=== PATIENT | male | born 1990 | race Caucasian/White ===

== ENCOUNTER 2023-10-28 03:48 | Emergency (ER) | payer OTHER, SELFPAY ==
--- NOTE | ~2023-10-28 | XR_ITS ---
EXAMINATION: XR ANKLE, RIGHT CLINICAL INFORMATION: Right ankle deformity. Pain. COMPARISON: None available. TECHNIQUE: AP, lateral, and mortise views of the right ankle. FINDINGS: Spiral oblique fractures are noted through the distal fibular metadiaphysis with intra-articular extension. No significant displacement is appreciated. No additional acute fractures are seen. Ankle mortise appears intact. Moderate to severe soft tissue swelling is noted over the lateral malleolus and lower leg. No evidence of radiopaque foreign body or soft tissue air. XR/XR ankle RT min 3V IMPRESSION: Oblique spiral fractures through the distal fibular metadiaphysis with suggestion of intra-articular extension. No significant displacement is noted. Overlying soft tissue swelling. No additional acute fractures are noted in the right ankle.
--- NOTE | ~2023-10-28 | XR_ITS ---
EXAMINATION: XR FOOT, RIGHT CLINICAL INFORMATION: Mid foot pain COMPARISON: None available. TECHNIQUE: AP, lateral, and oblique views of the right foot. FINDINGS: There is a minimally displaced oblique fracture of the distal fibula. Osseous alignment throughout the foot is anatomic. No additional fracture identified in the foot. No significant focal soft tissue abnormality identified. XR/XR foot RT min 3V IMPRESSION: Minimally displaced oblique fracture of the distal fibula.
[2023-10-28 04:02] VITALS: BP 138/82; PULSE 121; O2SAT 98; BMI 18.8
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
[2023-10-28] MEDS: Acetaminophen 325 MG TABLET 975 MG PO (05:44)
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
== END 2023-10-28 07:00 ==
PROVIDERS: Emergency Provider Student in an Organized Health Care Education/Training Program
DX: S82.452A Displaced comminuted fracture of shaft of left fibula, initial encounter for closed fracture (principal); S80.212A Abrasion, left knee, initial encounter; S90.511A Abrasion, right ankle, initial encounter; S00.83XA Contusion of other part of head, initial encounter; M79.671 Pain in right foot; Y04.2XXA Assault by strike against or bumped into by another person, initial encounter; Y93.9 Activity, unspecified; Y92.9 Unspecified place or not applicable; Y99.9 Unspecified external cause status
CPT/HCPCS: 73610; 73630; 99283

== ENCOUNTER 2023-11-04 10:18 | Outpatient (AMB) | payer OTHER, SELFPAY ==
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
[2023-11-04 10:22] VITALS: BMI 18.7
== END 2023-11-04 10:49 | disposition home or self-care (01) ==
PROVIDERS: Visit Provider Physician Assistant
DX: S82.831A Other fracture of upper and lower end of right fibula, initial encounter for closed fracture (principal)
CPT/HCPCS: 99203

== ENCOUNTER → 2023-11-04 10:18 | Outpatient (BNVA) | payer OTHER, SELFPAY | PROVIDERS: Visit Provider Physician Assistant | DX: S82.831A Other fracture of upper and lower end of right fibula, initial encounter for closed fracture (principal) | CPT/HCPCS: 99202 ==

== ENCOUNTER 2023-11-14 10:53 | Outpatient (REF) | payer OTHER, SELFPAY ==
--- NOTE | ~2023-11-14 | XR_ITS ---
EXAMINATION: XR ANKLE, RIGHT CLINICAL INFORMATION: Reason for Exam M25.571 - Pain in right ankle and joints of right foot COMPARISON: X-rays of the right ankle October 2013. TECHNIQUE: AP, lateral, and mortise views of the right ankle. FINDINGS: There is decreased soft tissue swelling over the distal fibula. The oblique minimally displaced fracture distal fibula is redemonstrated unchanged in appearance and alignment. The mortise remains intact. Remaining bone and joints unremarkable. XR/XR ankle RT min 3V IMPRESSION: 1. Decreased soft tissue swelling over the distal fibula. 2. No change in alignment of the distal fibular fracture.
== END 2023-11-14 10:54 | disposition home or self-care (01) ==
LOC: HO.HOSX 10:53
PROVIDERS: Visit Provider Physician Assistant
DX: S82.831D Other fracture of upper and lower end of right fibula, subsequent encounter for closed fracture with routine healing (principal); M25.571 Pain in right ankle and joints of right foot; X58.XXXD Exposure to other specified factors, subsequent encounter
CPT/HCPCS: 73610; 99212

== ENCOUNTER 2023-11-14 13:44 | Outpatient (AMB) | payer OTHER, SELFPAY ==
--- NOTE | 2023-11-14 14:12 | A.OFFVIS_ITS ---
Intake Intake Visit Reasons: OV- Rt ankle fx Intake Note: Marlo a 33 year old male presents today for a follow up of right ankle fx, DOI 10/28/23. Patient reports discomfort with sleeping. Currently his pain level is 8-9 out of 10. States sharp pain at the lateral aspect of ankle. Finds some relief with elevation. He continues to wear a walking boot as instructed. Allergies aspirin Allergy (Unverified 11/14/23 14:18) Unknown NSAIDS (Non-Steroidal Anti-Inflamma Allergy (Unverified 11/14/23 14:18) Unknown Penicillins Allergy (Unverified 11/14/23 14:18) Unknown HPI OV- Rt ankle fx HPI Details 33-year-old male who returns to the [facility] today for a follow-up of right ankle fracture, 10/28/23. He continues to have sharp pain at the lateral aspect of his ankle and rates the pain as about 8 on the scale of 0-10. He also c/o discomfort with sleeping. He finds mild relief with elevation. He continues to wear the walking boot as instructed. [facility] Social History Patient Tobacco Use Status: Current someday Tobacco user Current occupational status: employed Current occupation: [employer] store Review of Systems Const All systems reviewed & are unremarkable except as noted in HPI and below Physical Exam Const General: cooperative and no acute distress Orientation/consciousness: patient oriented x3 Resp Effort & Inspection: normal respiratory effort and able to speak in complete sentences Cardio Peripheral pulses: Peripheral pulses 2+ throughout Neuro General: patient oriented x3 Extrem Other: Right ankle: Normal to inspection with diffuse swelling over the medial and lateral malleolus with tenderness along the soft tissues. No discomfort along the posterior aspect of the ankle, no deformity along the Achilles tendon, negative Brito?s. No pain along the syndesmosis or anterior tibia. No laxity, NVI. Results Reviewed Results Reviewed: xrays of the right ankle obtained in the office today show non displaced distal fibular fx with ankle mortise intact Assessment & Plan Assessment & Plan (1) Fracture of distal end of right fibula: Code(s): S82.831A - Other fracture of upper and lower end of right fibula, initial en counter for closed fracture Qualifiers: Encounter type: subsequent encounter Fracture morphology: other fracture Fracture type: closed Fracture healing: with routine healing Qualified Code(s): S82.831D - Other fracture of upper and lower end of right fibula, subsequent encounter for closed fracture with routine healing Plan Images were reviewed with Dr. Bennett in the office today. He will continue with conservative treatment. He will be weight bearing as tolerated. He will elevate for swelling control. He will remain out of work till I see him back in 6 weeks with new x-rays, sooner if needed. Orders: Orders XR ankle RT min 3V Today M25.571 - Pain in right ankle and joints of right foot Patient Instructions: Scribed for Anabella Key PA-C, by Javier Quintanilla medical insurance collector, on 11/14/2023 at 2:15 PM OSWALD. Anabella Langford PA-C, have personally reviewed and agree with the information entered by the scribe. Coding Level of Care Code Global (88739) Diagnoses Other closed fracture of distal end of right fibula with routine healing, subsequent encounter S82.831D Encounter type: subsequent encounter Fracture morphology: other fracture Fracture type: closed Fracture healing: with routine healing
== END 2023-11-14 14:39 | disposition home or self-care (01) ==
PROVIDERS: Visit Provider Physician Assistant
DX: S82.831D Other fracture of upper and lower end of right fibula, subsequent encounter for closed fracture with routine healing (principal)
CPT/HCPCS: 99213

== ENCOUNTER 2023-12-26 09:16 | Outpatient (REF) | payer OTHER, SELFPAY ==
--- NOTE | ~2023-12-26 | XR_ITS ---
EXAMINATION: XR ANKLE, RIGHT CLINICAL INFORMATION: Pain. COMPARISON: Radiograph right ankle 11/14/2023. TECHNIQUE: AP, lateral, and mortise views of the right ankle. FINDINGS: Fracture lines of distal fibular fracture are slightly less distinct suggesting some degree of osseous bridging and healing. Soft tissue swelling is decreased. No interval injuries. XR/XR ankle RT min 3V IMPRESSION: 1. Healing distal fibular fracture. 2. Decreased soft tissue swelling.
== END 2023-12-26 09:17 | disposition home or self-care (01) ==
LOC: HO.HOSX 09:16
PROVIDERS: Visit Provider Physician Assistant
DX: M25.571 Pain in right ankle and joints of right foot (principal); S82.831D Other fracture of upper and lower end of right fibula, subsequent encounter for closed fracture with routine healing; X58.XXXD Exposure to other specified factors, subsequent encounter
CPT/HCPCS: 73610; 99212

== ENCOUNTER 2023-12-26 14:00 | Outpatient (AMB) | payer OTHER, SELFPAY ==
[2023-12-26 14:22] VITALS: BMI 18.7
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
== END 2023-12-26 14:50 | disposition home or self-care (01) ==
PROVIDERS: Visit Provider Physician Assistant
DX: S82.831D Other fracture of upper and lower end of right fibula, subsequent encounter for closed fracture with routine healing (principal)
CPT/HCPCS: 99213

== ENCOUNTER 2024-01-03 16:53 | Emergency (ER) | payer OTHER, SELFPAY ==
--- NOTE | ~2024-01-03 | CT_ITS ---
EXAMINATION: CT HEAD WITHOUT CONTRAST CLINICAL INFORMATION: Headaches. COMPARISON: None. TECHNIQUE: Contiguous axial imaging was performed from the skull base to vertex without intravenous administration of contrast. Coronal and sagittal reformatted images are performed at the CT scanner. [This CT examination was performed using dose optimization techniques as appropriate, variously including the following: *Automated exposure control *Adjustment of mA and/or kV according to patient size (this includes techniques or standardized protocols for targeted exams where dose is matched to indication/reason for exam; i.e. extremities or head) *Use of iterative reconstruction technique] DLP: 607 mGy-cm. FINDINGS: There is no evidence of acute intracranial hemorrhage or territorial infarction. No abnormal mass-effect or midline shift is seen. [place] to white matter differentiation is well preserved. No extra-axial fluid collections are identified. The ventricles are normal in size. There is no abnormal attenuation within the brain parenchyma. There is no osseous abnormality. The mastoid air cells and visualized portions of the paranasal sinuses are well-aerated. CT/CT head/brain wo IV con IMPRESSION: No acute intracranial pathology.
[2024-01-03 17:17] VITALS: BP 150/90; PULSE 82; RESP 16; TEMP 36.6; O2SAT 98; BMI 20.5
--- NOTE | 2024-01-03 17:18 | ED.HA ---
HPI - Headache General Chief Complaint: Headache Stated Complaint: lft head side pain/vomiting Time Seen by Provider: 01/03/24 21:14 History of Present Illness HPI Narrative: The patient is a 33-year-old male who was generally in good health. He has on no medications. He says he has a history of allergies but otherwise considers himself in good health. He says that 2 days ago on Tuesday he developed a lot of vomiting. This was associated with some diarrhea. Yesterday the vomiting had resolved but he developed a headache at around 11:00. He says he was doing nothing in particular at the time and there was no action or event that provoked with a headache. He says that he rested and just waited to see if it would get better. Today he continued to have the headache and was encouraged by his employer to get checked. He has not had a fever. He says the headache at this point his primarily on the left side of his head above his left ear. It is worse if he sneezes. He has had some sneezing and nasal discharge. No fevers. No sore throat. He says he does not normally get headaches. There is some associated photophobia. No other visual symptoms. Related Data Home Medications Medication Instructions Recorded Confirmed No Known Home Meds 11/04/23 11/04/23 Allergies Allergy/AdvReac Type Severity Reaction Status Date / Time aspirin Allergy Unknown Unverified 12/26/23 14:26 NSAIDS (Non-Steroidal Allergy Unknown Unverified 12/26/23 14:26 Anti-Inflamma Penicillins Allergy Unknown Unverified 12/26/23 14:26 Review of Systems Review of Systems: Yes all other systems are reviewed and are negative [facility] Social History Social History Patient Tobacco Use Status: Current someday Tobacco user Advance Directives: No Advance Directives Information Provided: No Current occupational status: employed Current occupation: [employer] Physical Exam Vital Signs: Vital Signs: Last Vital Signs Temp 97.9 F 01/03/24 17:17 Pulse 91 01/03/24 19:55 Resp 14 01/03/24 19:55 BP 150/90 H 01/03/24 17:17 Pulse Ox 97 01/03/24 19:55 O2 Del Method Room Air 01/03/24 19:55 BMI result Body Mass Index 20.5 Const: Other: The patient is awake and alert, pleasant and cooperative. He does not appear acutely ill in any way. He does not appear in distress. HEENT: Other: Face is symmetrical. The pharynx is normal. There is no facial swelling. No trismus. There is tenderness to the left scalp in the left temporal region and above and behind the left ear. There is no apparent soft tissue swelling. No erythema. Tympanic membranes are normal bilaterally. External ears are normal bilaterally. Eyes: Other: Pupils are round, equal and reactive to light. Extraocular movements are intact. Conjunctivae are clear. Eyelids are normal. Neck: Other: The neck is entirely supple. No cervical adenopathy. Resp: Effort & Inspection: normal respiratory effort Auscultation: clear to auscultation bilaterally Cardio: Rate: regular rate Rhythm: regular rhythm Heart sounds: S1 normal heart sound present and S2 normal heart sound present Skin: Other: Skin is dry and unremarkable. No rash. Neuro: Other: The patient is awake, alert, appropriate, nontoxic appearing. Cranial nerves are intact. He moves his extremities normally. He moves with normal coordination. He is grossly neurologically intact. Extrem: Other: Extremities are unremarkable. No peripheral edema. Course Course Course Narrative: This is rapid medical exam. Deferred additional HPI, ROS, PE to primary provider. 33 yo male with no known medical history here with complaints of headache, vomiting since Tuesday. no fever, no history of migraines. Will obtain viral testing VSS Medications Administered Discontinued Medications Generic Name Dose Route Start Last Admin Trade Name Freq PRN Reason Stop Dose Admin Acetaminophen 975 mg 01/03/24 21:56 01/03/24 21:59 Acetaminophen 325 Mg Tablet PO 01/03/24 21:57 975 mg ONCE ONE Administration Medical Decision Making Medical Decision Making MDM Narrative: The patient is a very pleasant an ordinarily healthy 33-year-old presents with a new headache syndrome. He describes having initially had vomiting. He describes also having some nasal discharge and a left-sided headache that is worse when he blows his nose. Viral swabs are negative. Head CT is negative. His vital signs are unremarkable. Overall I do not find any evidence of an acutely dangerous process. I think he may be discharged with instructions to use ibuprofen and acetaminophen as needed for his discomfort and should follow up with his regular doctor. Lab Data Labs: Lab Results 01/03/24 Range/Units 17:42 COVID-19 (LANEY) Negative (Negative) COVID-19 Clin Com See Note Influenza Type A (MICHELE) Negative (Negative) Influenza Type B (MICHELE) Negative (Negative) Influenza A & B Note See Note Discharge Plan Discharge Clinical Impression: Headache Patient Disposition: Home, Self-Care Additional Instructions: You tested negative for COVID and influenza today. The CT scan of your head is unremarkable. I think it is unlikely that your headache represents a significantly dangerous process. My hope is that it gets better on its own in the next couple of days. You may use ibuprofen and acetaminophen as needed. Please contact [address] [place] [address] tomorrow to set up a follow-up appointment with a regular doctor to discuss this further and for a regular checkup. If at any point you are significantly worse please return to the emergency room. Prescriptions: No Action No Known Home Meds Referrals: [facility] [Provider Group] (headache) Stand Alone Forms: Work/School Release Interventions: ED Discharge Assessment Last Done: 01/03/24 22:36 Discharge Date/Time: 01/03/24 22:36
[2024-01-03 18:21] LABS: COVID-19 Test Negative (Negative); IDNOW Serial# 08D9AD1C; IDNOW Serial# 152EDE1D; Influenza A Negative (Negative); Influenza B2 Negative (Negative)
[2024-01-03 19:55] VITALS: PULSE 91; RESP 14; O2SAT 97
[2024-01-03] MEDS: Acetaminophen 325 MG TABLET 975 MG PO (21:59)
== END 2024-01-03 22:36 | disposition home or self-care (01) ==
PROVIDERS: Nurse Practitioner Family; Emergency Provider Emergency Medicine
DX: R51.9 Headache, unspecified (principal); R11.10 Vomiting, unspecified; R19.7 Diarrhea, unspecified; R09.89 Other specified symptoms and signs involving the circulatory and respiratory systems; Z11.52 Encounter for screening for COVID-19
CPT/HCPCS: 70450; 87502; 87635; 99284

== ENCOUNTER 2024-02-06 09:53 | Outpatient (REF) | payer OTHER, SELFPAY | END 2024-02-06 09:54 | disposition home or self-care (01) | LOC: HO.HOSX 09:53 | PROVIDERS: Visit Provider Physician Assistant | DX: Z13.89 Encounter for screening for other disorder (principal) ==

== ENCOUNTER 2025-04-19 22:29 | Emergency (ER) | payer OTHER, SELFPAY ==
--- NOTE | ~2025-04-19 | CT_ITS ---
CLINICAL HISTORY: trauma CT CERVICAL SPINE WITHOUT CONTRAST COMPARISON: None. FINDINGS: There is no evidence of an acute fracture or dislocation. Vertebral body heights and alignment are maintained. There is no prevertebral soft tissue swelling. No pneumothorax in the lung apices. IMPRESSION: 1. No evidence of an acute fracture or dislocation. This document has been electronically signed by: Carlos De La Cruz M.D. on 04/20/2025 03:32:15
--- NOTE | ~2025-04-19 | CT_ITS ---
CLINICAL HISTORY: trauma CT CHEST WITH CONTRAST CT ABDOMEN AND PELVIS WITH CONTRAST COMPARISON: None. FINDINGS: CT CHEST: Exam is motion limited. No evidence of a pneumothorax or pneumomediastinum. No acute infiltrate or consolidation. No pleural effusion. No lymphadenopathy. Cardiac size is within normal limits. Thoracic aorta is partially obscured by motion/streak artifact but is normal in caliber without evidence of an aneurysm. No definite dissection. Sternum, manubrium, ribs, and thoracic spine are grossly intact. Gynecomastia is noted. CT ABDOMEN/PELVIS: Exam is limited due to motion/streak artifact. No evidence of an acute traumatic injury in the abdomen/pelvis. Fatty liver is noted. Gallbladder is grossly unremarkable. Stomach is underdistended which limits assessment. There is minimal prominence of the pancreatic duct without focal lesion. Spleen and adrenal glands are unremarkable. Both kidneys are unremarkable. Contrast is noted within portions of the renal collecting systems. No evidence of a urinary bladder rupture. No evidence of an abdominal aortic aneurysm or dissection. No evidence of a bowel obstruction or free air. No definite pericolonic inflammation. No evidence of appendicitis. No lymphadenopathy or loculated fluid collection. Lumbar spine, bony pelvis, and hips are intact. IMPRESSION: 1. CT chest and CT abdomen/pelvis are limited due to motion/streak artifact. No definite evidence of an acute traumatic injury. 2. Additional findings are detailed above. This document has been electronically signed by: Carlos De La Cruz M.D. on 04/20/2025 03:57:44
--- NOTE | ~2025-04-19 | CT_ITS ---
CLINICAL HISTORY: head injury CT BRAIN WITHOUT CONTRAST COMPARISON: 01/03/2024. FINDINGS: There is no evidence of an acute infarct or intraparenchymal hemorrhage. There is no mass effect, midline shift, or extra-axial blood. The ventricles are normal in size without evidence of hydrocephalus. The bone windows are unremarkable. There is again noted to be remote posttraumatic change involving the medial wall of the left orbit. Soft tissue swelling/hematoma is noted posterior to the calvarium, for example seen on axial image 36 of series 2. IMPRESSION: 1. No acute disease in the brain. Soft tissue swelling/hematoma is noted posterior to the calvarium. This document has been electronically signed by: Carlos De La Cruz M.D. on 04/20/2025 03:38:54
[2025-04-19 22:31] VITALS: PULSE 67; O2SAT 97; BMI 24.2
--- NOTE | 2025-04-19 22:37 | ECG_ITS ---
Test Reason : OD Blood Pressure : */* mmHG Vent. Rate : 69 BPM Atrial Rate : 69 BPM P-R Int : 164 ms QRS Dur : 84 ms QT Int : 402 ms P-R-T Axes : 79 81 48 degrees QTcB Int : 430 ms Normal sinus rhythm Early repolarization Normal ECG No previous ECGs available Referred By: Nicole Suarez Electronically Signed By: Jeremi Randall
[2025-04-19 22:54] LABS: MANUAL DIFF FLAG NO
[2025-04-19 22:55] LABS: Basophils Absolute Auto 0.1 X10*3/uL (0.0-0.2); Basophils Percent Auto 0.5 % (0-2); Eosinophils Absolute Auto 0.2 X10*3/uL (0.0-0.4); Eosinophils Percent Auto 1.7 % (0-4); Hematocrit 45.2 % (42.0-52.0); Hemoglobin 16.5 g/dl (14.0-18.0); Imm Gran Abs Auto 0.03 X10*3/uL (0.00-0.03); Imm Gran Pct Auto 0.3 % (0.0-0.4); Lymphocytes Absolute Auto 2.7 X10*3/uL (1.2-4.9); Lymphocytes Percent Auto 28.5 % (20-40); Mean Corpuscular HGB Conc 36.5 g/dl (31.0-36.0); Mean Corpuscular Hemoglobin 31.2 pg (27.0-33.0); Mean Corpuscular Volume 85.4 fL (80.0-98.0); Mean Platelet Volume 9.3 fL (9.4-12.4); Monocytes Absolute Auto 0.9 X10*3/uL (0.1-1.2); Monocytes Percent Auto 9.5 % (2-11); Neutrophils Absolute Auto 5.6 x10*3/uL (2.0-8.3); Neutrophils Percent Auto 59.5 % (45-73); Platelet Count 276 X10*3/uL (160-400); Red Blood Count 5.29 X10*6/uL (4.60-5.80); Red Cell Distribution Width 12.3 % (11.0-16.0); White Blood Count 9.4 X10*3/uL (4.8-10.8)
[2025-04-19 23:09] LABS: Ethanol 178 mg/dL
[2025-04-19 23:16] LABS: Alanine Aminotransferase 33 U/L (0-40); Albumin Level 4.8 g/dL (3.5-5.0); Alkaline Phosphatase 103 U/L (39-117); Anion Gap 21 (12-20); Aspartate Amino Transferase 64 U/L (5-37); Bilirubin Total 0.7 mg/dL (0.0-1.0); Blood Urea Nitrogen 14 mg/dL (9-16); Calcium 8.9 mg/dL (8.4-10.2); Carbon Dioxide 21 mmol/L (22-29); Chloride 107 mmol/L (96-108); Estimated Glomerular Filt Rate > 60; Glucose Random 81 mg/dL (60-115); Potassium 4.6 mmol/L (3.3-5.1); Sodium 144 mmol/L (135-145); Total Protein 7.8 g/dL (6.5-8.0)
[2025-04-19 23:20] LABS: Troponin-I High Sensitivity < 2.7 ng/L (<3.5-35.0)
--- NOTE | 2025-04-19 23:40 | MHC.EDTECH ---
EKG previously done under [facility] . Repeated EKG after patient was identified.
--- NOTE | 2025-04-19 23:50 | ED.OVERDOSE ---
HPI - Overdose General Chief Complaint: Overdose Stated Complaint: found unresponsive, combative Time Seen by Provider: 04/19/25 22:57 History of Present Illness HPI Narrative: Patient is a 35-year-old male was found unresponsive in a parking lot. On EMS arrival patient became very aggressive. Agitated. EMS reports patient was having headaches. Over time patient became less and less responsive. Patient is unable to answer my question moaning moving extremities. Pupils were pinpoint to me. Related Data Home Medications ?Medication ?Instructions ?Recorded ?Confirmed No Known Home Meds 11/04/23 11/04/23 Allergies Allergy/AdvReac Type Severity Reaction Status Date / Time aspirin Allergy Unknown Unverified 12/26/23 14:26 NSAIDS (Non-Steroidal Allergy Unknown Unverified 12/26/23 14:26 Anti-Inflamma Penicillins Allergy Unknown Unverified 12/26/23 14:26 Review of Systems Review of Systems: Unable to obtain full review of systems secondary to patient's condition Yes Unobtainable due to mental condition [facility] Social History Social History Patient Tobacco Use Status: Current someday Tobacco user Use of substances other than those prescribed or required for medical reasons: Yes Substance Use Type: Unknown Advance Directives: No Advance Directives Information Provided: No Do you have a plan to hurt others: No Plan Current occupational status: employed Current occupation: [employer] Physical Exam Vital Signs: Vital Signs: Last Vital Signs Temp 98.4 F 04/20/25 04:09 Pulse 84 04/20/25 05:53 Resp 13 04/20/25 05:53 BP 96/65 04/20/25 05:53 Pulse Ox 97 04/20/25 04:09 O2 Del Method Room Air 04/20/25 04:09 BMI result Body Mass Index 24.2 Appearance: Lethargic in no acute distress Eyes: Pupils equal, round and reactive to light. ENT: Pharynx normal. Neck: Normal inspection. Neck supple. No lymph nodes noted. No crepitus CVS: Normal heart rate and rhythm. Pulses normal. Normal S1 and S2 Respiratory: No respiratory distress. Breath sounds normal. No Wheezing. No rales Abdomen: Soft and nontender. No rigidity. No distention. good BS x4 Skin: Skin warm and dry. Normal skin color. Normal skin turgor. Extremities: No lower extremity edema. Neurovascular intact to all extremities. No Lacerations. No Rash Neuro: Lethargic. No motor deficit. No sensory deficit. Moving all extermities. No slurred speech Medications Administered Discontinued Medications Generic Name Dose Route Start Last Admin Trade Name Marianoq PRN Reason Stop Dose Admin Sodium Chloride 1,000 mls @ 999 mls/hr 04/19/25 23:45 04/20/25 01:20 Ns IV 04/20/25 00:45 Infused .Q1H1M JEANNIE Infusion Sodium Chloride 1,000 mls @ 999 mls/hr 04/19/25 23:45 04/20/25 01:20 Ns IV 04/20/25 00:45 Infused .Q1H1M JEANNIE Infusion Iohexol 85 ml 04/20/25 01:14 04/20/25 01:15 Iohexol 350 Mg/Ml 100 Ml Infus..Btl IV 04/20/25 01:15 85 ml ONCE ONE Administration Medical Decision Making Medical Decision Making [facility] Narrative: My interpretation of patient's EKG showed a sinus rhythm heart rate is 80 VA QRS QTC normal there is J-point elevation noted patient is was found unresponsive in a parking lot. On EMS arrival patient was aggressive. Agitated. Gradually became less responsive with time. 2 L of fluid was ordered. Patient's sugar was checked it was 81 there is no evidence for hypoglycemia causing patient's symptoms. CT scan of the head by my interpretation is grossly negative CT C-spine CT chest mi interpretations grossly negative. Currently pending Radiology results. Labs are pending. Will monitor very carefully. Patient's white count is normal. Differential is normal electrolytes showed negative troponin BUN and creatinine that is normal alcohol was elevated at 178. Of no patient's bladder scan is over 550. Signs of retention. Patient refused Moses catheter. Will monitor. 06/20/2025 at 07:34 hours,Dr. Molina Cox's note: I assumed care of this patient from my colleague, physician certified anesthesiologist assistant Berenice Moses at 04:00 hours pending the patient's CAT scans and laboratory results. My independent interpretation patient's laboratory reveal results are as follows: CBC was normal. Bicarb was low 21. AST elevated 64. Troponin was below detectable limits. Urinalysis was negative. Ethanol level was 178 consistent with a acute alcohol intoxication. Drug screen urine was positive for PCP and cocaine and I think this explains the patient's agitation. Patient had a CT scan head, cervical spine and chest were unremarkable with no findings of significant trauma. The patient was now awake and alert but has no memory of what happened to him last night. He does admit to using intranasal cocaine. Patient did have an erection overnight at this time however he is flaccid and does not have any priapism. The patient is currently complaining of a headache and dizziness. Patient was able to eat crackers and drink nadia carol without any difficulty. I did discuss the dangers of using illicit drugs and the high-risk of dying from a fentanyl overdose. The patient was discharged home with an intranasal Narcan Dosepak. Patient was discharged home. Admission/Observation Consideration of admission/observation: Escalation of care including admission/observation considered (Yes) Lab Data MDM Lab Attestation statement: I reviewed the patient's lab results. 04/19/25 22:49 04/19/25 22:49 Labs: Lab Results 04/19/25 04/20/25 Range/Units 22:49 04:11 WBC 9.4 (4.8-10.8) X10*3/uL RBC 5.29 (4.60-5.80) X10*6/uL Hgb 16.5 (14.0-18.0) g/dl Hct 45.2 (42.0-52.0) % MCV 85.4 (80.0-98.0) fL MCH 31.2 (27.0-33.0) pg MCHC 36.5 H (31.0-36.0) g/dl RDW 12.3 (11.0-16.0) % Plt Count 276 (160-400) X10*3/uL MPV 9.3 L (9.4-12.4) fL Immature Gran % (Auto) 0.3 (0.0-0.4) % Neut % (Auto) 59.5 (45-73) % Lymph % (Auto) 28.5 (20-40) % Foard % (Auto) 9.5 (2-11) % Eos % (Auto) 1.7 (0-4) % Baso % (Auto) 0.5 (0-2) % Lymph # (Auto) 2.7 (1.2-4.9) X10*3/uL Foard # (Auto) 0.9 (0.1-1.2) X10*3/uL Eos # (Auto) 0.2 (0.0-0.4) X10*3/uL Baso # (Auto) 0.1 (0.0-0.2) X10*3/uL Abs Immat Gran (auto) 0.03 (0.00-0.03) X10*3/uL Absolute Neuts (auto) 5.6 (2.0-8.3) x10*3/uL Absolute Nucleated RBC 0.000 (0.0-0.012) X10*3/uL Nucleated RBC % (auto) 0.0 (0.0-0.2) /100WBC Sodium 144 (135-145) mmol/L Potassium 4.6 (3.3-5.1) mmol/L Chloride 107 (96-108) mmol/L Carbon Dioxide 21 L (22-29) mmol/L Anion Gap 21 H (12-20) BUN 14 (9-16) mg/dL Creatinine 0.83 (0.5-1.4) mg/dL Estim Creat Clear Calc 111.0 Estimated GFR > 60 Random Glucose 81 (60-115) mg/dL Calcium 8.9 (8.4-10.2) mg/dL Total Bilirubin 0.7 (0.0-1.0) mg/dL AST 64 H (5-37) U/L ALT 33 (0-40) U/L Alkaline Phosphatase 103 (39-117) U/L Troponin I High Sens < 2.7 (<3.5-35.0) ng/L Total Protein 7.8 (6.5-8.0) g/dL Albumin 4.8 (3.5-5.0) g/dL Urine Color Yellow Urine Appearance Clear Urine pH 5.5 (5.0-9.0) Ur Specific Jewett >= 1.030 H (1.005-1.025) Urine Protein Negative (Neg-Trace) mg/dL Urine Glucose (UA) Negative (Negative) mg/dL Urine Ketones 15 (Negative) mg/dL Urine Blood Negative (Negative) Urine Nitrite Negative (Negative) Ur Leukocyte Esterase Negative (Negative) Urine RBC 0-2 (0-2) /HPF Urine WBC 0-5 (0-5) /HPF Ur Squamous Epith Cells 0-2 (0-2) /HPF Urine Bacteria None Seen (None Seen) Hyaline Casts 0-2 (0-2) /LPF Urine Opiates Screen Not Detected (Not Detect) Ur Buprenorphine Scrn Not Detected (Not Detect) ng/mL Ur Oxycodone Screen Not Detected (Not Detect) ng/mL Urine Methadone Screen Not Detected (Not Detect) ng/mL Urine Fentanyl Screen Not Detected (Not Detect) Ur Barbiturates Screen Not Detected (Not Detect) Ur Phencyclidine Scrn POSITIVE H (Not Detect) Ur Amphetamines Screen Not Detected (Not Detect) U Benzodiazepines Scrn Not Detected (Not Detect) Urine Cocaine Screen POSITIVE H (Not Detect) U Marijuana (THC) Screen Not Detected (Not Detect) Ethyl Alcohol 178 mg/dL Radiology Impression Discussion of test interpretation with radiology: I have reviewed the radiologist's reading. Radiologist Impression: CT BRAIN WITHOUT CONTRAST COMPARISON: 01/03/2024. FINDINGS: There is no evidence of an acute infarct or intraparenchymal hemorrhage. There is no mass effect, midline shift, or extra-axial blood. The ventricles are normal in size without evidence of hydrocephalus. The bone windows are unremarkable. There is again noted to be remote posttraumatic change involving the medial wall of the left orbit. Soft tissue swelling/hematoma is noted posterior to the calvarium, for example seen on axial image 36 of series 2. IMPRESSION: 1. No acute disease in the brain. Soft tissue swelling/hematoma is noted posterior to the calvarium. This document has been electronically signed by: Carlos De La Cruz M.D. on 04/20/2025 03:38:54 CT CERVICAL SPINE WITHOUT CONTRAST COMPARISON: None. FINDINGS: There is no evidence of an acute fracture or dislocation. Vertebral body heights and alignment are maintained. There is no prevertebral soft tissue swelling. No pneumothorax in the lung apices. IMPRESSION: 1. No evidence of an acute fracture or dislocation. CT CHEST IMPRESSION: 1. CT chest and CT abdomen/pelvis are limited due to motion/streak artifact. No definite evidence of an acute traumatic injury. 2. Additional findings are detailed above. This document has been electronically signed by: Carlos De La Cruz M.D. on 04/20/2025 03:57:44 Discharge Plan Discharge Clinical Impression: Alcohol intoxication, Cocaine use disorder, PCP intoxication, Closed head injury Instructions: Alcohol Intoxication (DC) Prescriptions: No Action No Known Home Meds Print Language: Amharic
[2025-04-20 00:03] VITALS: BP 105/68; PULSE 72; RESP 16; TEMP 36.7; O2SAT 98
[2025-04-20] MEDS: 0.9 % Sodium Chloride 1,000 ML 999 ML IV ×2 (00:19)
[2025-04-20] MEDS: iohexoL 350 MG/ML 100 ML INFUS..BTL 85 ML IV (01:15)
--- NOTE | 2025-04-20 02:06 | PC.NURSE ---
This nurse made aware of enlarged bladder on ct scan. Bladder scan shows >551 of urine. Pt encouraged to urinate. When awaken becomes uncooperative and states wanting to be left alone. Pt flares arms out to be left alone and states I will pee when I want . made aware. Monitoring ongoing.
[2025-04-20 04:09] VITALS: BP 105/73; PULSE 87; RESP 15; TEMP 36.9; O2SAT 97
[2025-04-20 04:21] LABS: Appearance Urine Clear; Color Urine Yellow; Glucose Urine UA Negative (Negative); Leukocyte Esterase Urine Negative (Negative); Nitrite Urine Negative (Negative); PH 5.5 (5.0-9.0); Specific Gravity - Urine >= 1.030 (1.005-1.025); Urine Blood Negative (Negative); Urine Ketones 15 mg/dL (Negative); Urine Protein Negative (Neg-Trace)
--- NOTE | 2025-04-20 04:24 | PC.NURSE ---
Pt able to void independently in urinal.
[2025-04-20 04:26] LABS: Bacteria Urine None Seen (None Seen); Hyaline Casts Urine 0-2 /LPF (0-2); RBC Urine 0-2 /HPF (0-2); Squamous Epithelial Cell Urine 0-2 /HPF (0-2); WBC Urine 0-5 /HPF (0-5)
[2025-04-20 04:31] LABS: Amphetamine Screen Urine Not Detected (Not Detect); Barbiturates, Urine Not Detected (Not Detect); Benzodiazepines Screen Urine Not Detected (Not Detect); Buprenorphine Scr Not Detected (Not Detect); Cannabinoid Screen Urine Not Detected (Not Detect); Cocaine Screen Urine POSITIVE (Not Detect); Fentanyl, urine Not Detected (Not Detect); Methadone Screen, Urine Not Detected (Not Detect); Opiate Screen Urine Not Detected (Not Detect); Oxycodone Screen Urine Not Detected (Not Detect); Phencyclidine Screen Urine POSITIVE (Not Detect)
[2025-04-20 05:53] VITALS: BP 96/65; PULSE 84; RESP 13
[2025-04-20 08:13] VITALS: BP 124/72; PULSE 68; RESP 16; O2SAT 98
[2025-04-20] MEDS: Naloxone HCl Nasal TAKE HOME 4 MG SPRAY 8 MG NOSTRILALT (09:15)
[2025-04-20 09:21] VITALS: BP 124/72; PULSE 80; RESP 16; TEMP 36.9; O2SAT 94
[2025-04-20 10:20] VITALS: BP 107/58; PULSE 105; RESP 16; O2SAT 98
== END 2025-04-20 10:33 | disposition home or self-care (01) ==
PROVIDERS: Emergency Medicine Emergency Medical Services; Emergency Provider Emergency Medicine Emergency Medical Services
DX: F10.920 Alcohol use, unspecified with intoxication, uncomplicated (principal); Y90.6 Blood alcohol level of 120-199 mg/100 ml; F14.10 Cocaine abuse, uncomplicated; S09.90XA Unspecified injury of head, initial encounter; X58.XXXA Exposure to other specified factors, initial encounter; R40.4 Transient alteration of awareness; R45.6 Violent behavior; R45.1 Restlessness and agitation; R53.83 Other fatigue; R33.9 Retention of urine, unspecified; R51.9 Headache, unspecified; R42 Dizziness and giddiness; F17.200 Nicotine dependence, unspecified, uncomplicated; Y93.9 Activity, unspecified; Y92.481 Parking lot as the place of occurrence of the external cause; Y99.9 Unspecified external cause status
CPT/HCPCS: 36415; 70450; 71260; 72125; 74177; 80053; 80307; 81001; 84484; 85025; 93005; 96360; 99285; Q9967

== ENCOUNTER → 2025-04-19 22:37 | Outpatient (BNV) | payer OTHER, SELFPAY | PROVIDERS: Emergency Provider Emergency Medicine Emergency Medical Services; Visit Provider Internal Medicine Cardiovascular Disease | DX: T50.901A Poisoning by unspecified drugs, medicaments and biological substances, accidental (unintentional), initial encounter (principal) | CPT/HCPCS: 93010 ==

== ENCOUNTER → 2025-04-20 | Outpatient (BNV) | payer OTHER, SELFPAY | PROVIDERS: Emergency Provider Emergency Medicine Emergency Medical Services; Visit Provider Radiology Diagnostic Radiology | DX: S09.90XA Unspecified injury of head, initial encounter (principal); W19.XXXA Unspecified fall, initial encounter | CPT/HCPCS: 70450; 71260; 72125 ==